=== PATIENT | male | born 1990 | race Caucasian/White ===

== ENCOUNTER 2016-11-27 13:22 | Emergency (ER) | payer OTHER ==
[~2016-11-27] VITALS: Ht 172.7 cm; Wt 81.6 kg
[2016-11-27] MEDS ORDERED: ZOFRAN4 MG PO (13:35)
[2016-11-27] MEDS ORDERED: AUGMENTIN 500 M1 TAB PO (13:35)
== END 2016-11-27 14:29 | disposition home or self-care (01) ==
LOC: ED 13:22
DX: S01.81XA Laceration without foreign body of other part of head, initial encounter (principal); R03.0 Elevated blood-pressure reading, without diagnosis of hypertension; F32.9 Major depressive disorder, single episode, unspecified; W55.03XA Scratched by cat, initial encounter; Y93.89 Activity, other specified; Y92.89 Other specified places as the place of occurrence of the external cause; Y99.9 Unspecified external cause status